=== PATIENT | female | born 1935 | race Caucasian/White ===

== ENCOUNTER 2016-10-30 09:53 | Inpatient (IN) | payer OTHER ==
[~2016-10-30] VITALS: Ht 162.6 cm; Wt 92.1 kg
[~2016-10-30 09:53] MED LIST: ALBU18 IN; ALLO100T PO; DICY20TA66 PO; ESTR1TAB3 PO; HYDR-2652 PO; HYDR12.56 PO; LATA0.0015; LEVO200T45 PO; LOVA40TA72 PO; MET10T PO; MET50T PO; PANT1INJ3 PO; TIMO0.5S32; TRAZ100T2 PO
[2016-10-30] MEDS ORDERED: SODIUM CHLORIDE 0.9% 1,000 ML IVB ONE (10:30)
[2016-10-30] MEDS ORDERED: ONDANSETRON HCL 4 MG/2 ML VIAL IV ONE (10:30)
[2016-10-30 10:36] LABS: Urine RBC None Seen /hpf (0 - 4)
[2016-10-30 10:45] LABS: Urine Bilirubin Negative (Negative); Urine Blood Negative /uL (Negative); Urine Color Yellow (Yellow); Urine Glucose Normal (Normal); Urine Ketone Negative (Negative); Urine Nitrite Negative (Negative); Urine Squamous Epithelial Cell FEW /hpf (<5); Urine Urobilinogen Normal (Negative); Urine pH 6.5 (5.0-8.0)
[2016-10-30] MEDS ORDERED: cloNIDine HCL 0.1 MG TAB PO ONE (10:45)
[2016-10-30 10:58] LABS: Basophils # (auto) 0.1 uL; Basophils % (auto) 0.4 % (0.0-2.0); CONDITION Y; Eosinophils # (auto) 0.2 uL; Eosinophils % (auto) 1.3 % (0.0-7.0); Hematocrit 41.2 % (36.0-46.0); Hemoglobin 13.9 g/dL (12.2-16.2); Lymphocytes # (auto) 1.7 uL; Lymphocytes % (auto) 11.6 % (10.0-50.0); Mean Corpuscular Hemoglobin 30.5 pg (28.0-32.0); Mean Corpuscular Hgb Conc. 33.7 g/dL (32.0-36.0); Mean Corpuscular Volume 90.3 fL (80.0-100.0); Mean Platelet Volume 7.9 fL (7.4-10.4); Monocytes # (auto) 0.7 uL; Monocytes % (auto) 4.6 % (0.0-12.0); Neutrophils # (auto) 11.9 uL; Neutrophils % (auto) 82.1 % (37.0-80.0); Platelet Count (auto) 412 10^3/uL (140-450); Red Cell Distribution Width 13.5 % (11.6-16.0); White Blood Cell 14.5 10^3/uL (4.4-10.8)
[2016-10-30 11:13] LABS: INR 0.92 (0.9-1.15); Partial Thromboplastin Time 28.3 sec (22.64-33.71)
[2016-10-30 11:24] LABS: Albumin 3.1 g/dL (3.4-5.0); Alkaline Phosphatase 97 U/L (45-117); Amylase 31 U/L (25-115); Anion Gap 12 (5-15); Aspartate Aminotransferase 11 U/L (15-37); BUN/Creatinine Ratio 11.9; Bilirubin, Total 0.6 mg/dL (0.2-1.0); Blood Urea Nitrogen 21 mg/dL (7-18); Carbon Dioxide 24 mmol/L (21-32); Chloride 84 mmol/L (98-107); GFR African American 36 mL/min; GFR Non-African American 29 mL/min; Glucose 109 mg/dL (74-106); Magnesium 2.1 mg/dL (1.6-2.6); Potassium 4.1 mmol/L (3.5-5.1); Sodium 120 mmol/L (136-145); Total Protein 7.4 g/dL (6.4-8.2)
[2016-10-30] MEDS ORDERED: LEVOFLOXACIN 500MG 100 ML IV ONE (11:30)
[2016-10-30] MEDS ORDERED: PROMETHAZINE HCL 25 MG/ML 1ML IV ONE (13:00)
[2016-10-30] MEDS ORDERED: TEMAZEPAM 15 MG CAP PO PRN (13:00)
[2016-10-30] MEDS ORDERED: MORPHINE SULF INJ 2 MG/ML SYRINGE 1ML IV PRN (13:00)
[2016-10-30] MEDS ORDERED: PANTOPRAZOLE SODIUM 40 MG/10 ML VIAL IV ONE (13:00)
[2016-10-30] MEDS ORDERED: LORazepam 0.5 MG TAB PO PRN (13:00)
[2016-10-30] MEDS ORDERED: ALBUTEROL SULF 2.5 MG/0.5ML(0.5%) NEB SOLN NEB PRN (13:00)
[2016-10-30] MEDS ORDERED: NITROGLYCERIN 0.4 MG SL TAB SL PRN (13:00)
[2016-10-30] MEDS ORDERED: cefTRIAXone 1GM/50ML D5W 50 ML IV ONE (13:00)
[2016-10-30] MEDS: SODIUM CHLORIDE 0.9% 1,000 ML IV SCH ×2 (13:14→22:47)
[2016-10-30] MEDS ORDERED: hydrALAZINE HCL 25 MG TAB PO ONE (13:15)
[2016-10-30] MEDS: metroNIDAZOLE 500MG/100ML 100 ML IV SCH ×2 (14:52→22:38)
[2016-10-30] MEDS ORDERED: PATIENTS OWN MEDICATION (Trazodone Hcl 1 TAB) PO SCH (18:00)
[2016-10-30 19:33] VITALS: BP 124/45
[2016-10-30] MEDS: PROMETHAZINE HCL 25 MG/ML 1ML IV PRN ×2 (20:15→23:45)
[2016-10-30 20:27] VITALS: BP 140/46
[2016-10-30] MEDS ORDERED: PATIENTS OWN MEDICATION (Hydralazine Hcl 1 TAB) PO SCH ×2 (22:00)
[2016-10-30] MEDS: TIMOLOL MAL 0.5% OPTH(EYE) SOL 5ML EACHEYE SCH (22:00)
[2016-10-30] MEDS: MORPHINE SULF INJ 2 MG/ML SYRINGE 1ML IV PRN (22:05)
[2016-10-30] MEDS: hydrALAZINE HCL 25 MG TAB PO SCH (22:11)
[2016-10-30 22:14] VITALS: BP 140/46
[2016-10-30] MEDS: LATANOPROST 0.005 % OPTH(EYE) SOL 2.5ML EACHEYE SCH (22:15)
[2016-10-30] MEDS: traZODone HCL 50 MG TAB PO SCH (22:15)
[2016-10-30] MEDS: METOPROLOL TARTRATE 50 MG TAB PO SCH (22:16)
[2016-10-31] MEDS: metroNIDAZOLE 500MG/100ML 100 ML IV SCH ×4 (02:22→23:00)
[2016-10-31 05:00] VITALS: BP 102/44
[2016-10-31 05:46] LABS: Basophils # (auto) 0 uL; Basophils % (auto) 0.1 % (0.0-2.0); CONDITION Y; Eosinophils # (auto) 0.1 uL; Eosinophils % (auto) 1.1 % (0.0-7.0); Hematocrit 35.8 % (36.0-46.0); Hemoglobin 12.1 g/dL (12.2-16.2); Lymphocytes # (auto) 0.8 uL; Lymphocytes % (auto) 6.6 % (10.0-50.0); Mean Corpuscular Hemoglobin 30.9 pg (28.0-32.0); Mean Corpuscular Volume 90.9 fL (80.0-100.0); Mean Platelet Volume 7.7 fL (7.4-10.4); Monocytes # (auto) 0.7 uL; Monocytes % (auto) 5.3 % (0.0-12.0); Neutrophils % (auto) 86.9 % (37.0-80.0); Platelet Count (auto) 294 10^3/uL (140-450); Red Cell Distribution Width 13.8 % (11.6-16.0); White Blood Cell 12.6 10^3/uL (4.4-10.8)
[2016-10-31] MEDS: LEVOTHYROXINE SODIUM 100 MCG TAB PO SCH (06:03)
[2016-10-31 06:21] LABS: Albumin 2.4 g/dL (3.4-5.0); BUN/Creatinine Ratio 10.2; Calcium 7.9 mg/dL (8.5-10.1); Potassium 3.9 mmol/L (3.5-5.1)
[2016-10-31 06:23] LABS: Bilirubin, Total 0.6 mg/dL (0.2-1.0); Total Protein 5.9 g/dL (6.4-8.2)
[2016-10-31] MEDS: PROMETHAZINE HCL 25 MG/ML 1ML IV PRN ×3 (07:55→23:28)
[2016-10-31 09:00] VITALS: BP 116/46
[2016-10-31] MEDS: cefTRIAXone 1GM/50ML D5W 50 ML IV SCH (09:36)
[2016-10-31] MEDS: PANTOPRAZOLE SODIUM 40 MG/10 ML VIAL IV SCH (09:37)
[2016-10-31] MEDS: SODIUM CHLORIDE 0.9% 1,000 ML IV SCH ×2 (09:37→19:30)
[2016-10-31] MEDS: ESTRADIOL 1 MG TAB PO SCH (09:37)
[2016-10-31] MEDS: ALLOPURINOL 100 MG TAB PO SCH (09:38)
[2016-10-31] MEDS: hydrALAZINE HCL 25 MG TAB PO SCH ×2 (09:45→22:57)
[2016-10-31] MEDS: METOPROLOL TARTRATE 50 MG TAB PO SCH ×2 (09:45→22:57)
[2016-10-31] MEDS ORDERED: PATIENTS OWN MEDICATION (Levothyroxine Sodium 200 MCG) PO SCH (10:00)
[2016-10-31] MEDS: TIMOLOL MAL 0.5% OPTH(EYE) SOL 5ML EACHEYE SCH ×2 (10:00→22:56)
[2016-10-31] MEDS: MORPHINE SULF INJ 2 MG/ML SYRINGE 1ML IV PRN (12:25)
[2016-10-31] MEDS: ACETAMINOPHEN 500 MG TAB PO PRN ×2 (12:43→21:07)
[2016-10-31 13:00] VITALS: BP 143/60
[2016-10-31 17:00] VITALS: BP 133/51
[2016-10-31 20:00] VITALS: BP 149/55
[2016-10-31 21:28] VITALS: BP 149/55
[2016-10-31] MEDS: LATANOPROST 0.005 % OPTH(EYE) SOL 2.5ML EACHEYE SCH (22:56)
[2016-10-31] MEDS: traZODone HCL 50 MG TAB PO SCH (22:57)
[2016-11-01] VITALS (7 sets, daily range): BP systolic 98–150; BP diastolic 40–61
[2016-11-01] MEDS: ACETAMINOPHEN 500 MG TAB PO PRN ×2 (01:51→09:22)
[2016-11-01] MEDS: metroNIDAZOLE 500MG/100ML 100 ML IV SCH ×4 (02:52→20:00)
[2016-11-01] MEDS: PROMETHAZINE HCL 25 MG/ML 1ML IV PRN (04:45)
[2016-11-01] MEDS: SODIUM CHLORIDE 0.9% 1,000 ML IV SCH ×2 (04:50→15:01)
[2016-11-01 06:43] LABS: Basophils # (auto) 0 uL; Basophils % (auto) 0.2 % (0.0-2.0); CONDITION Y; Eosinophils # (auto) 0.5 uL; Eosinophils % (auto) 4.7 % (0.0-7.0); Hematocrit 34.8 % (36.0-46.0); Hemoglobin 11.6 g/dL (12.2-16.2); Lymphocytes # (auto) 0.4 uL; Lymphocytes % (auto) 4.2 % (10.0-50.0); Mean Corpuscular Hemoglobin 30.3 pg (28.0-32.0); Mean Corpuscular Hgb Conc. 33.4 g/dL (32.0-36.0); Mean Corpuscular Volume 90.7 fL (80.0-100.0); Mean Platelet Volume 7.7 fL (7.4-10.4); Monocytes # (auto) 0.5 uL; Monocytes % (auto) 4.4 % (0.0-12.0); Neutrophils # (auto) 8.8 uL; Neutrophils % (auto) 86.5 % (37.0-80.0); Platelet Count (auto) 355 10^3/uL (140-450); Red Cell Distribution Width 13.8 % (11.6-16.0); White Blood Cell 10.2 10^3/uL (4.4-10.8)
[2016-11-01] MEDS: LEVOTHYROXINE SODIUM 100 MCG TAB PO SCH (06:54)
[2016-11-01 07:00] LABS: Albumin 2.5 g/dL (3.4-5.0); BUN/Creatinine Ratio 8.9; Calcium 7.9 mg/dL (8.5-10.1)
[2016-11-01 07:06] LABS: Bilirubin, Total 0.4 mg/dL (0.2-1.0); Total Protein 6.1 g/dL (6.4-8.2)
[2016-11-01 07:17] LABS: Potassium 4.2 mmol/L (3.5-5.1)
[2016-11-01] MEDS: PANTOPRAZOLE SODIUM 40 MG/10 ML VIAL IV SCH (09:21)
[2016-11-01] MEDS: cefTRIAXone 1GM/50ML D5W 50 ML IV SCH (09:21)
[2016-11-01] MEDS: ESTRADIOL 1 MG TAB PO SCH (09:21)
[2016-11-01] MEDS: ALLOPURINOL 100 MG TAB PO SCH (09:22)
[2016-11-01] MEDS: METOPROLOL TARTRATE 50 MG TAB PO SCH ×2 (09:23→21:13)
[2016-11-01] MEDS: hydrALAZINE HCL 25 MG TAB PO SCH ×2 (09:24→21:12)
[2016-11-01] MEDS: TIMOLOL MAL 0.5% OPTH(EYE) SOL 5ML EACHEYE SCH ×2 (09:26→21:43)
[2016-11-01] MEDS ORDERED: LORazepam 2MG/ML-1ML VIAL IV PRN (18:00)
[2016-11-01] MEDS: LATANOPROST 0.005 % OPTH(EYE) SOL 2.5ML EACHEYE SCH (21:43)
[2016-11-01] MEDS: traZODone HCL 50 MG TAB PO SCH (21:44)
[2016-11-02] VITALS (7 sets, daily range): BP systolic 92–133; BP diastolic 35–55
[2016-11-02] MEDS: SODIUM CHLORIDE 0.9% 1,000 ML IV SCH ×3 (00:59→20:31)
[2016-11-02] MEDS: metroNIDAZOLE 500MG/100ML 100 ML IV SCH ×4 (01:22→20:30)
[2016-11-02] MEDS: LEVOTHYROXINE SODIUM 100 MCG TAB PO SCH (06:15)
[2016-11-02] MEDS: cefTRIAXone 1GM/50ML D5W 50 ML IV SCH (08:45)
[2016-11-02] MEDS: ESTRADIOL 1 MG TAB PO SCH (09:40)
[2016-11-02] MEDS: HYDROcodone-ACET 5/325MG TAB PO PRN (09:40)
[2016-11-02] MEDS: TIMOLOL MAL 0.5% OPTH(EYE) SOL 5ML EACHEYE SCH ×2 (09:40→22:04)
[2016-11-02] MEDS: PANTOPRAZOLE SODIUM 40 MG/10 ML VIAL IV SCH (09:40)
[2016-11-02] MEDS: ALLOPURINOL 100 MG TAB PO SCH (09:40)
[2016-11-02] MEDS: METOPROLOL TARTRATE 50 MG TAB PO SCH ×2 (09:41→22:05)
[2016-11-02] MEDS: hydrALAZINE HCL 25 MG TAB PO SCH ×2 (09:41→22:05)
[2016-11-02] MEDS: ACETAMINOPHEN 500 MG TAB PO PRN (20:40)
[2016-11-02] MEDS: LATANOPROST 0.005 % OPTH(EYE) SOL 2.5ML EACHEYE SCH (22:04)
[2016-11-02] MEDS: traZODone HCL 50 MG TAB PO SCH (22:05)
[2016-11-03] MEDS: metroNIDAZOLE 500MG/100ML 100 ML IV SCH ×2 (02:16→08:38)
[2016-11-03 05:14] VITALS: BP 105/43
[2016-11-03] MEDS: LEVOTHYROXINE SODIUM 100 MCG TAB PO SCH (06:27)
[2016-11-03] MEDS: SODIUM CHLORIDE 0.9% 1,000 ML IV SCH ×2 (06:50→18:07)
[2016-11-03 06:59] LABS: Hematocrit 33.1 % (36.0-46.0); Mean Corpuscular Hemoglobin 30.2 pg (28.0-32.0); Mean Corpuscular Hgb Conc. 33.4 g/dL (32.0-36.0); Mean Corpuscular Volume 90.7 fL (80.0-100.0); Mean Platelet Volume 7.9 fL (7.4-10.4); Platelet Count (auto) 273 10^3/uL (140-450); Red Cell Distribution Width 13.2 % (11.6-16.0); SUSPECT SEE PRINTOUT; White Blood Cell 10.5 10^3/uL (4.4-10.8)
[2016-11-03 07:19] LABS: BUN/Creatinine Ratio 8.8; Calcium 7.9 mg/dL (8.5-10.1); Potassium 3.7 mmol/L (3.5-5.1)
[2016-11-03 07:40] LABS: Metamyelocytes % 0; Myelocytes % 0; Promyelocytes % 0; Reactive Lymphocytes 0
[2016-11-03 08:09] LABS: Platelet Estimate Adequate; RBC Morphology Normal
[2016-11-03 08:23] VITALS: BP 141/61
[2016-11-03] MEDS: TIMOLOL MAL 0.5% OPTH(EYE) SOL 5ML EACHEYE SCH ×2 (09:09→23:31)
[2016-11-03] MEDS: PANTOPRAZOLE SODIUM 40 MG/10 ML VIAL IV SCH (09:09)
[2016-11-03] MEDS: ESTRADIOL 1 MG TAB PO SCH (09:10)
[2016-11-03] MEDS: HYDROcodone-ACET 5/325MG TAB PO PRN ×2 (09:10→18:55)
[2016-11-03] MEDS: cefTRIAXone 1GM/50ML D5W 50 ML IV SCH (09:10)
[2016-11-03] MEDS: ALLOPURINOL 100 MG TAB PO SCH (09:11)
[2016-11-03] MEDS: hydrALAZINE HCL 25 MG TAB PO SCH ×2 (09:13→23:32)
[2016-11-03] MEDS: METOPROLOL TARTRATE 50 MG TAB PO SCH ×2 (09:13→23:33)
[2016-11-03 12:12] VITALS: BP 105/57
[2016-11-03 17:10] VITALS: BP 131/52
[2016-11-03 20:00] VITALS: BP 136/55
[2016-11-03 22:00] VITALS: BP 136/55
[2016-11-03] MEDS: LATANOPROST 0.005 % OPTH(EYE) SOL 2.5ML EACHEYE SCH (23:31)
[2016-11-03] MEDS: ACETAMINOPHEN 500 MG TAB PO PRN (23:32)
[2016-11-03] MEDS: traZODone HCL 50 MG TAB PO SCH (23:32)
[2016-11-04] MEDS ORDERED: HYOSCYAMINE SULF 0.125 MG TAB SL PRN (01:00)
[2016-11-04] MEDS ORDERED: DOCUSATE SOD 100 MG CAP PO PRN (01:00)
[2016-11-04] MEDS ORDERED: LORazepam 2MG/ML-1ML VIAL IV PRN (01:00)
[2016-11-04] MEDS ORDERED: MORPHINE SULF INJ 2 MG/ML SYRINGE 1ML IV PRN (01:00)
[2016-11-04] MEDS: SODIUM CHLORIDE 0.9% 1,000 ML IV SCH ×2 (02:59→12:47)
[2016-11-04 05:30] VITALS: BP 120/47
[2016-11-04 06:32] LABS: Basophils # (auto) 0 uL; Basophils % (auto) 0.2 % (0.0-2.0); CONDITION Y; DEFINITIVE SEE PRINTOUT; Eosinophils # (auto) 0.8 uL; Eosinophils % (auto) 8.1 % (0.0-7.0); Hematocrit 32.2 % (36.0-46.0); Hemoglobin 10.7 g/dL (12.2-16.2); Lymphocytes # (auto) 0.8 uL; Lymphocytes % (auto) 8.4 % (10.0-50.0); Mean Corpuscular Hemoglobin 30.4 pg (28.0-32.0); Mean Corpuscular Hgb Conc. 33.3 g/dL (32.0-36.0); Mean Corpuscular Volume 91.3 fL (80.0-100.0); Mean Platelet Volume 7.7 fL (7.4-10.4); Monocytes # (auto) 0.6 uL; Monocytes % (auto) 6.9 % (0.0-12.0); Neutrophils # (auto) 7.2 uL; Neutrophils % (auto) 76.4 % (37.0-80.0); Platelet Count (auto) 339 10^3/uL (140-450); Red Cell Distribution Width 14.4 % (11.6-16.0); White Blood Cell 9.4 10^3/uL (4.4-10.8)
[2016-11-04 06:40] LABS: Albumin 2.3 g/dL (3.4-5.0); Calcium 7.6 mg/dL (8.5-10.1); Potassium 3.8 mmol/L (3.5-5.1)
[2016-11-04 06:43] LABS: BUN/Creatinine Ratio 7.6
[2016-11-04 06:58] LABS: Bilirubin, Total 0.5 mg/dL (0.2-1.0); Total Protein 5.5 g/dL (6.4-8.2)
[2016-11-04] MEDS: LEVOTHYROXINE SODIUM 100 MCG TAB PO SCH (07:44)
[2016-11-04 08:00] VITALS: BP 120/47
[2016-11-04 09:00] VITALS: BP 146/61
[2016-11-04] MEDS: PANTOPRAZOLE SODIUM 40 MG/10 ML VIAL IV SCH (09:49)
[2016-11-04] MEDS: cefTRIAXone 1GM/50ML D5W 50 ML IV SCH (09:50)
[2016-11-04] MEDS: ALLOPURINOL 100 MG TAB PO SCH (09:51)
[2016-11-04] MEDS: ESTRADIOL 1 MG TAB PO SCH (09:51)
[2016-11-04] MEDS: TIMOLOL MAL 0.5% OPTH(EYE) SOL 5ML EACHEYE SCH ×2 (09:52→23:16)
[2016-11-04] MEDS: hydrALAZINE HCL 25 MG TAB PO SCH ×2 (09:52→23:18)
[2016-11-04] MEDS: METOPROLOL TARTRATE 50 MG TAB PO SCH ×2 (09:52→23:19)
[2016-11-04 13:00] VITALS: BP 137/60
[2016-11-04] MEDS: PROMETHAZINE HCL 25 MG/ML 1ML IV PRN ×2 (13:48→23:50)
[2016-11-04] MEDS: HYDROcodone-ACET 5/325MG TAB PO PRN ×2 (14:08→23:19)
[2016-11-04] MEDS ORDERED: LACTULOSE 20Gm/30ML SOLN PO PRN (17:00)
[2016-11-04] MEDS: BOOST PLUS 8 ounce PO SCH (17:54)
[2016-11-04 20:00] VITALS: BP 142/64
[2016-11-04 22:00] VITALS: BP 142/64
[2016-11-04] MEDS: LATANOPROST 0.005 % OPTH(EYE) SOL 2.5ML EACHEYE SCH (23:16)
[2016-11-04] MEDS: traZODone HCL 50 MG TAB PO SCH (23:20)
[2016-11-05] VITALS (7 sets, daily range): BP systolic 134–163; BP diastolic 53–70
[2016-11-05] MEDS: SODIUM CHLORIDE 0.9% 1,000 ML IV SCH ×3 (01:38→19:24)
[2016-11-05] MEDS: BOOST PLUS 8 ounce PO SCH ×5 (05:35→21:42)
[2016-11-05 06:11] LABS: Basophils # (auto) 0 uL; Basophils % (auto) 0.5 % (0.0-2.0); CONDITION Y; DEFINITIVE SEE PRINTOUT; Eosinophils # (auto) 0.7 uL; Eosinophils % (auto) 7.5 % (0.0-7.0); Hematocrit 32.6 % (36.0-46.0); Hemoglobin 10.7 g/dL (12.2-16.2); Lymphocytes # (auto) 1.5 uL; Lymphocytes % (auto) 16.2 % (10.0-50.0); Mean Corpuscular Hemoglobin 30.1 pg (28.0-32.0); Mean Corpuscular Hgb Conc. 32.9 g/dL (32.0-36.0); Mean Corpuscular Volume 91.7 fL (80.0-100.0); Mean Platelet Volume 7.8 fL (7.4-10.4); Monocytes # (auto) 0.7 uL; Monocytes % (auto) 7.2 % (0.0-12.0); Neutrophils # (auto) 6.5 uL; Neutrophils % (auto) 68.6 % (37.0-80.0); Platelet Count (auto) 352 10^3/uL (140-450); Red Cell Distribution Width 14.6 % (11.6-16.0); White Blood Cell 9.4 10^3/uL (4.4-10.8)
[2016-11-05] MEDS: LEVOTHYROXINE SODIUM 100 MCG TAB PO SCH (06:20)
[2016-11-05 06:39] LABS: Potassium 3.9 mmol/L (3.5-5.1)
[2016-11-05 06:44] LABS: Albumin 2.3 g/dL (3.4-5.0); BUN/Creatinine Ratio 7.5; Calcium 7.8 mg/dL (8.5-10.1)
[2016-11-05 06:46] LABS: Bilirubin, Total 0.4 mg/dL (0.2-1.0); Total Protein 5.6 g/dL (6.4-8.2)
[2016-11-05] MEDS ORDERED: cefTRIAXone 1GM/50ML D5W 50 ML IV SCH (09:00)
[2016-11-05] MEDS: cefTRIAXone 1GM/50ML D5W 50 ML IV SCH (09:05)
[2016-11-05] MEDS: TIMOLOL MAL 0.5% OPTH(EYE) SOL 5ML EACHEYE SCH ×2 (10:24→21:33)
[2016-11-05] MEDS: ESTRADIOL 1 MG TAB PO SCH (10:25)
[2016-11-05] MEDS: PANTOPRAZOLE SODIUM 40 MG/10 ML VIAL IV SCH (10:25)
[2016-11-05] MEDS: ALLOPURINOL 100 MG TAB PO SCH (10:26)
[2016-11-05] MEDS: METOPROLOL TARTRATE 50 MG TAB PO SCH ×2 (10:26→21:40)
[2016-11-05] MEDS: hydrALAZINE HCL 25 MG TAB PO SCH ×2 (10:26→21:39)
[2016-11-05] MEDS: MULTIPLE VITAMINS W/ MINERALS TAB PO SCH (16:52)
[2016-11-05] MEDS: ACETAMINOPHEN 500 MG TAB PO PRN (21:32)
[2016-11-05] MEDS: LATANOPROST 0.005 % OPTH(EYE) SOL 2.5ML EACHEYE SCH (21:33)
[2016-11-05] MEDS: traZODone HCL 50 MG TAB PO SCH (21:33)
[2016-11-05] MEDS: ASCORBIC ACID 500 MG TAB PO SCH (21:33)
[2016-11-06] VITALS (7 sets, daily range): BP systolic 103–157; BP diastolic 51–76
[2016-11-06] MEDS: SODIUM CHLORIDE 0.9% 1,000 ML IV SCH ×2 (04:47→14:50)
[2016-11-06] MEDS: BOOST PLUS 8 ounce PO SCH ×4 (06:00→22:00)
[2016-11-06] MEDS: LEVOTHYROXINE SODIUM 100 MCG TAB PO SCH (06:14)
[2016-11-06] MEDS: ASCORBIC ACID 500 MG TAB PO SCH ×2 (10:00→22:55)
[2016-11-06] MEDS: ESTRADIOL 1 MG TAB PO SCH (10:00)
[2016-11-06] MEDS: METOPROLOL TARTRATE 50 MG TAB PO SCH ×2 (10:00→22:55)
[2016-11-06] MEDS: hydrALAZINE HCL 25 MG TAB PO SCH ×2 (10:00→22:58)
[2016-11-06] MEDS: MULTIPLE VITAMINS W/ MINERALS TAB PO SCH (10:00)
[2016-11-06] MEDS: ALLOPURINOL 100 MG TAB PO SCH (10:00)
[2016-11-06] MEDS: TIMOLOL MAL 0.5% OPTH(EYE) SOL 5ML EACHEYE SCH ×2 (11:01→22:53)
[2016-11-06] MEDS: PANTOPRAZOLE SODIUM 40 MG/10 ML VIAL IV SCH (11:01)
[2016-11-06] MEDS: ACETAMINOPHEN 500 MG TAB PO PRN (14:51)
[2016-11-06] MEDS: LATANOPROST 0.005 % OPTH(EYE) SOL 2.5ML EACHEYE SCH (22:53)
[2016-11-06] MEDS: traZODone HCL 50 MG TAB PO SCH (22:54)
[2016-11-07] VITALS (7 sets, daily range): BP systolic 112–171; BP diastolic 58–72
[2016-11-07] MEDS: ACETAMINOPHEN 500 MG TAB PO PRN ×2 (04:11→23:17)
[2016-11-07] MEDS: SODIUM CHLORIDE 0.9% 1,000 ML IV SCH ×3 (06:19→20:47)
[2016-11-07] MEDS: BOOST PLUS 8 ounce PO SCH ×4 (06:20→23:19)
[2016-11-07] MEDS: LEVOTHYROXINE SODIUM 100 MCG TAB PO SCH (06:21)
[2016-11-07] MEDS: TIMOLOL MAL 0.5% OPTH(EYE) SOL 5ML EACHEYE SCH ×2 (10:22→23:12)
[2016-11-07] MEDS: PANTOPRAZOLE SODIUM 40 MG/10 ML VIAL IV SCH (10:22)
[2016-11-07] MEDS: ALLOPURINOL 100 MG TAB PO SCH (10:23)
[2016-11-07] MEDS: hydrALAZINE HCL 25 MG TAB PO SCH ×2 (10:23→23:19)
[2016-11-07] MEDS: ESTRADIOL 1 MG TAB PO SCH (10:23)
[2016-11-07] MEDS: ASCORBIC ACID 500 MG TAB PO SCH ×2 (10:23→23:13)
[2016-11-07] MEDS: MULTIPLE VITAMINS W/ MINERALS TAB PO SCH (10:23)
[2016-11-07] MEDS: METOPROLOL TARTRATE 50 MG TAB PO SCH ×2 (10:24→23:15)
[2016-11-07] MEDS ORDERED: BISMUTH SUBSALICYLATE 262 MG CHEW PO PRN (11:15)
[2016-11-07] MEDS: METOCLOPRAMIDE HCL 10 MG TAB PO PRN (18:15)
[2016-11-07] MEDS: traZODone HCL 50 MG TAB PO SCH (23:16)
[2016-11-07] MEDS: LATANOPROST 0.005 % OPTH(EYE) SOL 2.5ML EACHEYE SCH (23:18)
[2016-11-08 05:00] VITALS: BP 147/60
[2016-11-08] MEDS: BOOST PLUS 8 ounce PO SCH ×4 (05:39→21:19)
[2016-11-08] MEDS: SODIUM CHLORIDE 0.9% 1,000 ML IV SCH ×2 (05:51→16:47)
[2016-11-08] MEDS: LEVOTHYROXINE SODIUM 100 MCG TAB PO SCH (06:01)
[2016-11-08] MEDS: ACETAMINOPHEN 500 MG TAB PO PRN ×3 (06:56→20:31)
[2016-11-08 09:00] VITALS: BP 176/68
[2016-11-08] MEDS: hydrALAZINE HCL 25 MG TAB PO SCH ×2 (10:47→21:15)
[2016-11-08] MEDS: ESTRADIOL 1 MG TAB PO SCH (10:47)
[2016-11-08] MEDS: ASCORBIC ACID 500 MG TAB PO SCH ×2 (10:48→21:07)
[2016-11-08] MEDS: MULTIPLE VITAMINS W/ MINERALS TAB PO SCH (10:48)
[2016-11-08] MEDS: PANTOPRAZOLE SODIUM 40 MG/10 ML VIAL IV SCH (10:48)
[2016-11-08] MEDS: ALLOPURINOL 100 MG TAB PO SCH (10:48)
[2016-11-08] MEDS: METOCLOPRAMIDE HCL 10 MG TAB PO PRN (10:48)
[2016-11-08] MEDS: METOPROLOL TARTRATE 50 MG TAB PO SCH ×2 (10:49→22:59)
[2016-11-08] MEDS: TIMOLOL MAL 0.5% OPTH(EYE) SOL 5ML EACHEYE SCH ×2 (10:49→21:04)
[2016-11-08 13:00] VITALS: BP 164/59
[2016-11-08 17:00] VITALS: BP 171/58
[2016-11-08 20:00] VITALS: BP 149/72
[2016-11-08] MEDS: traZODone HCL 50 MG TAB PO SCH (21:07)
[2016-11-08] MEDS: LATANOPROST 0.005 % OPTH(EYE) SOL 2.5ML EACHEYE SCH (21:09)
[2016-11-08 22:00] VITALS: BP 149/72
[2016-11-09 01:23] VITALS: BP 149/72
[2016-11-09] MEDS: MORPHINE SULF INJ 2 MG/ML SYRINGE 1ML IV PRN (04:35)
[2016-11-09] MEDS: SODIUM CHLORIDE 0.9% 1,000 ML IV SCH (04:58)
[2016-11-09 05:00] VITALS: BP 170/60
[2016-11-09] MEDS: BOOST PLUS 8 ounce PO SCH (05:33)
[2016-11-09] MEDS: LEVOTHYROXINE SODIUM 100 MCG TAB PO SCH (05:58)
[2016-11-09] MEDS: ACETAMINOPHEN 500 MG TAB PO PRN (08:12)
[2016-11-09] MEDS: METOCLOPRAMIDE HCL 10 MG TAB PO PRN (08:12)
[2016-11-09 08:53] VITALS: BP 178/78
[2016-11-09] MEDS: MULTIPLE VITAMINS W/ MINERALS TAB PO SCH (10:05)
[2016-11-09] MEDS: ALLOPURINOL 100 MG TAB PO SCH (10:05)
[2016-11-09] MEDS: PANTOPRAZOLE SODIUM 40 MG/10 ML VIAL IV SCH (10:05)
[2016-11-09] MEDS: METOPROLOL TARTRATE 50 MG TAB PO SCH (10:06)
[2016-11-09] MEDS: hydrALAZINE HCL 25 MG TAB PO SCH (10:06)
[2016-11-09] MEDS: ESTRADIOL 1 MG TAB PO SCH (10:06)
[2016-11-09] MEDS: ASCORBIC ACID 500 MG TAB PO SCH (10:06)
[2016-11-09] MEDS: TIMOLOL MAL 0.5% OPTH(EYE) SOL 5ML EACHEYE SCH (10:07)
[2016-11-09 12:42] VITALS: BP 147/55
[2016-11-09 17:26] VITALS: BP 175/68
== END 2016-11-09 19:00 | disposition home health service, planned readmission (86) | DRG 682 ==
LOC: ER 09:56 → TELE 09:57 → TELE-WESTW 20:27 → WEST WING 11-06 18:20
PROVIDERS: ADMIT Internal Medicine; ATTEND Internal Medicine Pulmonary Disease
DX: N17.0 Acute kidney failure with tubular necrosis (principal); E43 Unspecified severe protein-calorie malnutrition; E87.1 Hypo-osmolality and hyponatremia; N39.0 Urinary tract infection, site not specified; R25.1 Tremor, unspecified; N18.4 Chronic kidney disease, stage 4 (severe); D72.829 Elevated white blood cell count, unspecified; E03.9 Hypothyroidism, unspecified; E78.5 Hyperlipidemia, unspecified; E86.0 Dehydration; I12.9 Hypertensive chronic kidney disease with stage 1 through stage 4 chronic kidney disease, or unspecified chronic kidney disease; K21.9 Gastro-esophageal reflux disease without esophagitis; K57.30 Diverticulosis of large intestine without perforation or abscess without bleeding; K80.20 Calculus of gallbladder without cholecystitis without obstruction; N94.89 Other specified conditions associated with female genital organs and menstrual cycle; R00.1 Bradycardia, unspecified; I16.0 Hypertensive urgency; Z82.49 Family history of ischemic heart disease and other diseases of the circulatory system; Z82.62 Family history of osteoporosis; Z91.041 Radiographic dye allergy status; Z88.0 Allergy status to penicillin; Z88.2 Allergy status to sulfonamides; Z88.8 Allergy status to other drugs, medicaments and biological substances; Z91.018 Allergy to other foods; Z90.710 Acquired absence of both cervix and uterus; Z90.89 Acquired absence of other organs; D63.8 Anemia in other chronic diseases classified elsewhere; E78.00 Pure hypercholesterolemia, unspecified; F41.9 Anxiety disorder, unspecified; K59.00 Constipation, unspecified; K76.0 Fatty (change of) liver, not elsewhere classified; Z71.89 Other specified counseling; L89.91 Pressure ulcer of unspecified site, stage 1
CPT/HCPCS: 36415; 70551; 71020; 74176; 76705; 76856; 78226; 80048; 80053; 81001; 82150; 82962; 83605; 83690; 83735; 84443; 84484; 84550; 85007; 85025; 85027; 85610; 85652; 85730; 87040; 87086; 93005; 96361; 96365; 96367; 96375; 97110; 97116; 97530; 99291; C9113; J0696; J1956; J2405; J3490

== ENCOUNTER → 2016-12-29 | Outpatient (CLI) | payer OTHER ==
[~2016-12-29] MED LIST changes: -ALBU18 IN; -HYDR12.56 PO; -TRAZ100T2 PO
[2016-12-29 09:53] LABS: Albumin 3.3 g/dL (3.4-5.0); BUN/Creatinine Ratio 18.7; Bilirubin, Total 0.3 mg/dL (0.2-1.0); Calcium 8.7 mg/dL (8.5-10.1); Total Protein 7.6 g/dL (6.4-8.2)
== END | disposition home or self-care (01) ==
LOC: LAB 09:10
PROVIDERS: ATTEND Internal Medicine
DX: N18.3 Chronic kidney disease, stage 3 (moderate) (principal)
CPT/HCPCS: 36415; 80053

== ENCOUNTER → 2017-02-11 | Outpatient (CLI) | payer OTHER ==
[~2017-02-11] MED LIST changes: -HYDR-2652 PO; +HYDR50TA15 PO
== END | disposition home or self-care (01) ==
LOC: LAB 14:24
PROVIDERS: ATTEND Obstetrics & Gynecology
DX: R19.09 Other intra-abdominal and pelvic swelling, mass and lump (principal)
CPT/HCPCS: 86304

== ENCOUNTER 2017-02-26 11:49 | Emergency (ER) | payer OTHER ==
[~2017-02-26] VITALS: Ht 162.6 cm; Wt 79.8 kg
[2017-02-26] MEDS ORDERED: SODIUM CHLORIDE 0.9% 1,000 ML IV ONE (12:15)
[2017-02-26] MEDS ORDERED: KETOROLAC TROMETH 30 MG/ML 1ML VIAL IV ONE (12:15)
[2017-02-26 13:14] LABS: Basophils # (auto) 0 uL; Basophils % (auto) 0.4 % (0.0-2.0); Eosinophils # (auto) 0.4 uL; Eosinophils % (auto) 3.6 % (0.0-7.0); Hematocrit 38.8 % (36.0-46.0); Hemoglobin 12.9 g/dL (12.2-16.2); Lymphocytes % (auto) 19.1 % (10.0-50.0); Mean Corpuscular Hemoglobin 29.5 pg (28.0-32.0); Mean Corpuscular Hgb Conc. 33.2 g/dL (32.0-36.0); Mean Corpuscular Volume 88.9 fL (80.0-100.0); Mean Platelet Volume 7.6 fL (6.9-10.8); Monocytes # (auto) 0.7 uL; Monocytes % (auto) 6.7 % (0.0-12.0); Neutrophils # (auto) 7.2 uL; Neutrophils % (auto) 70.2 % (37.0-80.0); Platelet Count (auto) 332 10^3/uL (140-450); Red Cell Distribution Width 13.6 % (11.8-14.3); White Blood Cell 10.2 10^3/uL (4.4-10.8)
[2017-02-26 14:02] LABS: Albumin 3.2 g/dL (3.4-5.0); BUN/Creatinine Ratio 18.9; Bilirubin, Total 0.5 mg/dL (0.2-1.0); Calcium 9.3 mg/dL (8.5-10.1); Potassium 4.1 mmol/L (3.5-5.1); Total Protein 7.3 g/dL (6.4-8.2)
[2017-02-26 14:44] VITALS: BP 159/66
== END 2017-02-26 15:08 | disposition home or self-care (01) ==
LOC: ER 11:49
DX: N39.0 Urinary tract infection, site not specified (principal); I10 Essential (primary) hypertension; I12.9 Hypertensive chronic kidney disease with stage 1 through stage 4 chronic kidney disease, or unspecified chronic kidney disease; N18.9 Chronic kidney disease, unspecified; K21.9 Gastro-esophageal reflux disease without esophagitis; E78.5 Hyperlipidemia, unspecified; E07.89 Other specified disorders of thyroid; Z90.710 Acquired absence of both cervix and uterus; Z90.89 Acquired absence of other organs; Z79.899 Other long term (current) drug therapy; Z88.0 Allergy status to penicillin; Z88.2 Allergy status to sulfonamides; Z91.041 Radiographic dye allergy status
CPT/HCPCS: 36415; 71020; 74176; 80053; 81002; 85025; 93005; 96361; 96374; 99285; J1885

== ENCOUNTER 2017-08-09 12:36 | Emergency (ER) | payer OTHER ==
[~2017-08-09] VITALS: Ht 162.6 cm; Wt 84.4 kg
[2017-08-09 12:39] VITALS: BP 208/78
[2017-08-09] MEDS ORDERED: ONDANSETRON HCL 4 MG/2 ML VIAL IV ONE (13:30)
[2017-08-09] MEDS ORDERED: MORPHINE SULFATE 8mg/ml INJ SDV IV ONE (13:30)
[2017-08-09 14:25] LABS: Basophils # (auto) 0 uL; Basophils % (auto) 0.3 % (0.0-2.0); Eosinophils # (auto) 0.2 uL; Hematocrit 40.1 % (36.0-46.0); Hemoglobin 13.4 g/dL (12.2-16.2); Lymphocytes # (auto) 0.9 uL; Lymphocytes % (auto) 8.5 % (10.0-50.0); Mean Corpuscular Hemoglobin 29.2 pg (28.0-32.0); Mean Corpuscular Hgb Conc. 33.4 g/dL (32.0-36.0); Mean Corpuscular Volume 87.5 fL (80.0-100.0); Monocytes # (auto) 0.7 uL; Monocytes % (auto) 6.2 % (0.0-12.0); Nucleated Red Blood Cells % 0.1 %; Platelet Count (auto) 354 10^3/uL (140-450); Red Blood Cells 4.58 10^6/uL (4.0-5.20); Red Cell Distribution Width 12.7 % (11.8-14.3); White Blood Cell 10.9 10^3/uL (4.4-10.8)
[2017-08-09 14:42] LABS: Alanine Aminotransferase 17 U/L (13-56); Albumin 3.2 g/dL (3.4-5.0); Anion Gap 9 (5-15); Aspartate Aminotransferase 18 U/L (15-37); BUN/Creatinine Ratio 13.6; Blood Urea Nitrogen 27 mg/dL (7-18); Calcium 9.1 mg/dL (8.5-10.1); Carbon Dioxide 25 mmol/L (21-32); Chloride 99 mmol/L (98-107); GFR African American 31 mL/min; GFR Non-African American 25 mL/min; Glucose 109 mg/dL (74-106); Potassium 4.3 mmol/L (3.5-5.1); Sodium 133 mmol/L (136-145)
[2017-08-09 14:46] LABS: Alkaline Phosphatase 72 U/L (45-117); Bilirubin, Total 0.8 mg/dL (0.2-1.0); Total Protein 7.1 g/dL (6.4-8.2)
== END 2017-08-09 17:07 | disposition home or self-care (01) ==
LOC: EDBD 12:36 → ER 12:36
DX: I13.0 Hypertensive heart and chronic kidney disease with heart failure and stage 1 through stage 4 chronic kidney disease, or unspecified chronic kidney disease (principal); N18.9 Chronic kidney disease, unspecified; I50.9 Heart failure, unspecified; K21.9 Gastro-esophageal reflux disease without esophagitis; E07.89 Other specified disorders of thyroid; Z90.89 Acquired absence of other organs; Z90.710 Acquired absence of both cervix and uterus; Z88.0 Allergy status to penicillin; Z88.2 Allergy status to sulfonamides; Z91.012 Allergy to eggs
CPT/HCPCS: 36415; 71045; 73502; 74176; 80053; 83880; 84484; 85025; 96374; 96375; 99285; J2270; J2405

== ENCOUNTER → 2017-09-16 | Outpatient (CLI) | payer OTHER | END | disposition home or self-care (01) | LOC: LAB 14:29 | PROVIDERS: ATTEND Internal Medicine | DX: N31.2 Flaccid neuropathic bladder, not elsewhere classified (principal); K21.9 Gastro-esophageal reflux disease without esophagitis; I12.9 Hypertensive chronic kidney disease with stage 1 through stage 4 chronic kidney disease, or unspecified chronic kidney disease; N18.9 Chronic kidney disease, unspecified | CPT/HCPCS: 87086; 87088; 87186 ==

== ENCOUNTER → 2017-11-11 | Outpatient (CLI) | payer OTHER | END | disposition home or self-care (01) | LOC: LAB 15:59 | PROVIDERS: ATTEND Family Medicine | DX: I12.9 Hypertensive chronic kidney disease with stage 1 through stage 4 chronic kidney disease, or unspecified chronic kidney disease (principal); N18.9 Chronic kidney disease, unspecified | CPT/HCPCS: 87077; 87186; 87205 ==

== ENCOUNTER → 2017-11-25 | Outpatient (CLI) | payer OTHER | END | disposition home or self-care (01) | LOC: LAB 14:22 | PROVIDERS: ATTEND Urology | DX: N31.2 Flaccid neuropathic bladder, not elsewhere classified (principal) | CPT/HCPCS: 87086; 87088; 87186 ==

== ENCOUNTER → 2017-11-30 | Outpatient (CLI) | payer OTHER ==
[2017-11-30 12:40] LABS: Urine Amorphous Crystal FEW /hpf (None Seen); Urine Bacteria NONE SEEN /hpf (None Seen); Urine Blood Negative /uL (Negative); Urine Specific Gravity 1.009 (1.001-1.035); Urine WBC 40 /hpf (0 - 5)
[2017-11-30 12:48] LABS: Bilirubin, Total 0.5 mg/dL (0.2-1.0); Calcium 8.9 mg/dL (8.5-10.1); Potassium 4.7 mmol/L (3.5-5.1); Total Protein 6.4 g/dL (6.4-8.2)
[2017-11-30 13:32] LABS: Basophils # (auto) 0.1 uL; Basophils % (auto) 0.5 % (0.0-2.0); Eosinophils # (auto) 0.3 uL; Eosinophils % (auto) 2.5 % (0.0-7.0); Hematocrit 35.9 % (36.0-46.0); Hemoglobin 12.4 g/dL (12.2-16.2); Lymphocytes # (auto) 1.7 uL; Lymphocytes % (auto) 15.2 % (10.0-50.0); Mean Corpuscular Hemoglobin 30.4 pg (28.0-32.0); Mean Corpuscular Hgb Conc. 34.5 g/dL (32.0-36.0); Monocytes # (auto) 0.6 uL; Monocytes % (auto) 5.6 % (0.0-12.0); Neutrophils # (auto) 8.3 uL; Neutrophils % (auto) 76.2 % (37.0-80.0); Platelet Count (auto) 360 10^3/uL (140-450); Red Blood Cells 4.08 10^6/uL (4.0-5.20); Red Cell Distribution Width 13.5 % (11.8-14.3)
== END | disposition home or self-care (01) ==
LOC: LAB 12:09
PROVIDERS: ATTEND Nurse Practitioner
DX: N39.0 Urinary tract infection, site not specified (principal); E78.5 Hyperlipidemia, unspecified; N18.4 Chronic kidney disease, stage 4 (severe); Z88.0 Allergy status to penicillin; Z88.2 Allergy status to sulfonamides; Z88.7 Allergy status to serum and vaccine
CPT/HCPCS: 36415; 80053; 80061; 81001; 83036; 84443; 85025

== ENCOUNTER → 2017-12-23 | Outpatient (CLI) | payer OTHER ==
[~2017-12-23] MED LIST changes: -LEVO200T45 PO; +LEVO200T7 PO
== END | disposition home or self-care (01) ==
LOC: LAB 13:56
PROVIDERS: ATTEND Urology
DX: N39.0 Urinary tract infection, site not specified (principal); I12.9 Hypertensive chronic kidney disease with stage 1 through stage 4 chronic kidney disease, or unspecified chronic kidney disease; N18.9 Chronic kidney disease, unspecified; K21.9 Gastro-esophageal reflux disease without esophagitis
CPT/HCPCS: 87086; 87088; 87186

== ENCOUNTER 2018-01-12 00:38 | Inpatient (IN) | payer OTHER ==
[~2018-01-12] VITALS: Ht 162.6 cm; Wt 73.9 kg
[2018-01-12 01:14] LABS: Basophils # (auto) 0.1 uL; Eosinophils # (auto) 0.4 uL; Eosinophils % (auto) 3.3 % (0.0-7.0); Hematocrit 40.3 % (36.0-46.0); Hemoglobin 13.6 g/dL (12.2-16.2); Lymphocytes # (auto) 2.6 uL; Lymphocytes % (auto) 22.3 % (10.0-50.0); Mean Corpuscular Hemoglobin 30.4 pg (28.0-32.0); Mean Corpuscular Hgb Conc. 33.8 g/dL (32.0-36.0); Mean Corpuscular Volume 89.8 fL (80.0-100.0); Monocytes # (auto) 0.7 uL; Monocytes % (auto) 6.4 % (0.0-12.0); Neutrophils # (auto) 7.7 uL; Platelet Count (auto) 347 10^3/uL (140-450); Red Blood Cells 4.49 10^6/uL (4.0-5.20); White Blood Cell 11.5 10^3/uL (4.4-10.8)
[2018-01-12 01:33] LABS: Albumin 3.2 g/dL (3.4-5.0); BUN/Creatinine Ratio 18.9; Calcium 8.7 mg/dL (8.5-10.1); Potassium 4.2 mmol/L (3.5-5.1)
[2018-01-12 01:38] LABS: Bilirubin, Total 0.6 mg/dL (0.2-1.0); Total Protein 7.3 g/dL (6.4-8.2)
[2018-01-12 02:33] LABS: Urine Bacteria FEW /hpf (None Seen); Urine Blood Negative /uL (Negative); Urine Budding Yeast OCCASIONAL /hpf (None Seen); Urine WBC 61 /hpf (0 - 5)
[2018-01-12 07:19] LABS: Basophils # (auto) 0.1 uL; Basophils % (auto) 0.7 % (0.0-2.0); Eosinophils # (auto) 0.2 uL; Eosinophils % (auto) 1.6 % (0.0-7.0); Hematocrit 35.6 % (36.0-46.0); Lymphocytes # (auto) 1.5 uL; Lymphocytes % (auto) 13.1 % (10.0-50.0); Mean Corpuscular Hemoglobin 30.1 pg (28.0-32.0); Mean Corpuscular Hgb Conc. 33.8 g/dL (32.0-36.0); Mean Corpuscular Volume 89.2 fL (80.0-100.0); Monocytes # (auto) 0.7 uL; Monocytes % (auto) 6.1 % (0.0-12.0); Neutrophils # (auto) 8.8 uL; Neutrophils % (auto) 78.5 % (37.0-80.0); Platelet Count (auto) 310 10^3/uL (140-450); Red Blood Cells 3.99 10^6/uL (4.0-5.20); Red Cell Distribution Width 13.9 % (11.8-14.3); White Blood Cell 11.1 10^3/uL (4.4-10.8)
[2018-01-12 07:35] LABS: Potassium 4.1 mmol/L (3.5-5.1)
[2018-01-12] MEDS ORDERED: ONDANSETRON HCL 4 MG/2 ML VIAL IV PRN (08:00)
[2018-01-12] MEDS: SODIUM CHLORIDE 0.9% 1,000 ML IV SCH (08:49)
[2018-01-12] MEDS: cefTRIAXone 1GM/10ml IVPUSH 10 ML IV SCH (09:28)
[2018-01-12] MEDS: hydrALAZINE HCL 25 MG TAB PO SCH ×2 (09:28→22:29)
[2018-01-12] MEDS: PANTOPRAZOLE 40 MG TAB PO SCH (09:33)
[2018-01-12] MEDS ORDERED: METOPROLOL TARTRATE 50 MG TAB PO SCH (10:00)
[2018-01-12] MEDS ORDERED: LORazepam 2MG/ML-1ML VIAL IV PRN (17:15)
[2018-01-12 22:00] VITALS: BP 130/48
[2018-01-12] MEDS: ATORVASTATIN 20 MG TAB PO SCH (22:30)
[2018-01-13] MEDS: SODIUM CHLORIDE 0.9% 1,000 ML IV SCH ×2 (00:40→12:51)
[2018-01-13 05:00] VITALS: BP 135/64
[2018-01-13 05:06] LABS: Basophils # (auto) 0 uL; Basophils % (auto) 0.5 % (0.0-2.0); Eosinophils # (auto) 0.3 uL; Eosinophils % (auto) 3.2 % (0.0-7.0); Hemoglobin 12.2 g/dL (12.2-16.2); Lymphocytes # (auto) 2.4 uL; Lymphocytes % (auto) 28.6 % (10.0-50.0); Mean Corpuscular Hemoglobin 30.7 pg (28.0-32.0); Mean Corpuscular Hgb Conc. 34.8 g/dL (32.0-36.0); Mean Corpuscular Volume 88.2 fL (80.0-100.0); Monocytes # (auto) 0.7 uL; Monocytes % (auto) 7.9 % (0.0-12.0); Neutrophils % (auto) 59.8 % (37.0-80.0); Platelet Count (auto) 298 10^3/uL (140-450); Red Blood Cells 3.96 10^6/uL (4.0-5.20); Red Cell Distribution Width 13.2 % (11.8-14.3); White Blood Cell 8.4 10^3/uL (4.4-10.8)
[2018-01-13 05:31] LABS: BUN/Creatinine Ratio 20.4; Calcium 8.5 mg/dL (8.5-10.1); Magnesium 1.9 mg/dL (1.6-2.6); Potassium 3.8 mmol/L (3.5-5.1)
[2018-01-13] MEDS ORDERED: LEVOTHYROXINE SODIUM 100 MCG TAB PO SCH (07:00)
[2018-01-13 08:46] VITALS: BP 172/66
[2018-01-13] MEDS: cefTRIAXone 1GM/10ml IVPUSH 10 ML IV SCH (09:15)
[2018-01-13] MEDS: PANTOPRAZOLE 40 MG TAB PO SCH (11:27)
[2018-01-13] MEDS: ASPirin 81 mg TAB PO SCH (11:28)
[2018-01-13] MEDS: ENOXAPARIN SOD 30 MG/0.3 ML SYRINGE SC SCH (11:28)
[2018-01-13] MEDS: hydrALAZINE HCL 25 MG TAB PO SCH ×2 (11:29→21:38)
[2018-01-13 12:02] VITALS: BP 153/57
[2018-01-13] MEDS ORDERED: MAGNESIUM SULFATE 1GM/100ML 100 ML IV ONE (12:15)
[2018-01-13] MEDS: ACETAMINOPHEN 500 MG TAB PO PRN ×2 (14:54→21:37)
[2018-01-13 16:43] VITALS: BP 139/55
[2018-01-13] MEDS: ATORVASTATIN 20 MG TAB PO SCH (21:37)
[2018-01-13 22:00] VITALS: BP 142/65
[2018-01-14 04:53] VITALS: BP 154/68
[2018-01-14 06:35] LABS: Potassium 3.8 mmol/L (3.5-5.1)
[2018-01-14 07:04] LABS: BUN/Creatinine Ratio 19.4; Calcium 8.6 mg/dL (8.5-10.1); Magnesium 2.2 mg/dL (1.6-2.6)
[2018-01-14] MEDS: SODIUM CHLORIDE 0.9% 1,000 ML IV SCH (08:23)
[2018-01-14] MEDS: cefTRIAXone 1GM/10ml IVPUSH 10 ML IV SCH (08:30)
[2018-01-14 09:00] VITALS: BP 169/70
[2018-01-14] MEDS: ENOXAPARIN SOD 30 MG/0.3 ML SYRINGE SC SCH (09:41)
[2018-01-14] MEDS: PANTOPRAZOLE 40 MG TAB PO SCH (09:41)
[2018-01-14] MEDS: ASPirin 81 mg TAB PO SCH (09:41)
[2018-01-14] MEDS: hydrALAZINE HCL 25 MG TAB PO SCH (09:42)
[2018-01-14] MEDS ORDERED: amLODIPine BESYLATE 5 MG TAB PO SCH (10:00)
[2018-01-14] MEDS ORDERED: AML5T PO (11:23)
[2018-01-14 13:00] VITALS: BP 140/57
[2018-01-14 13:03] VITALS: BP 169/70
== END 2018-01-14 17:20 | DRG 871 ==
LOC: EDBD 00:38 → ER 00:57 → TELE 00:58 → TELE-CENTR 21:30
PROVIDERS: ADMIT Nurse Practitioner Family; ATTEND Internal Medicine
DX: A41.9 Sepsis, unspecified organism (principal); N17.0 Acute kidney failure with tubular necrosis; E87.1 Hypo-osmolality and hyponatremia; N39.0 Urinary tract infection, site not specified; E44.0 Moderate protein-calorie malnutrition; W01.0XXA Fall on same level from slipping, tripping and stumbling without subsequent striking against object, initial encounter; S09.90XA Unspecified injury of head, initial encounter; I12.9 Hypertensive chronic kidney disease with stage 1 through stage 4 chronic kidney disease, or unspecified chronic kidney disease; E86.0 Dehydration; S43.402A Unspecified sprain of left shoulder joint, initial encounter; S63.502A Unspecified sprain of left wrist, initial encounter; R00.1 Bradycardia, unspecified; E03.9 Hypothyroidism, unspecified; M10.9 Gout, unspecified; F32.9 Major depressive disorder, single episode, unspecified; E66.9 Obesity, unspecified; E78.5 Hyperlipidemia, unspecified; R33.9 Retention of urine, unspecified; Z66 Do not resuscitate; T44.7X5A Adverse effect of beta-adrenoreceptor antagonists, initial encounter; N18.9 Chronic kidney disease, unspecified; K21.9 Gastro-esophageal reflux disease without esophagitis; Y93.89 Activity, other specified; Y92.89 Other specified places as the place of occurrence of the external cause; Y99.8 Other external cause status; Z91.041 Radiographic dye allergy status; Z88.2 Allergy status to sulfonamides; Z91.012 Allergy to eggs; Z88.0 Allergy status to penicillin; Z91.013 Allergy to seafood; Z88.7 Allergy status to serum and vaccine; Z91.018 Allergy to other foods; Z79.899 Other long term (current) drug therapy; Z87.440 Personal history of urinary (tract) infections; Z90.710 Acquired absence of both cervix and uterus; Z90.89 Acquired absence of other organs; Z82.49 Family history of ischemic heart disease and other diseases of the circulatory system; Z82.62 Family history of osteoporosis; Z68.28 Body mass index [BMI] 28.0-28.9, adult; Z79.82 Long term (current) use of aspirin
CPT/HCPCS: 36415; 70450; 73030; 73110; 80048; 80053; 80061; 81001; 83735; 83880; 84443; 84484; 85025; 87086; 93306; 93886; 95819; 96361; 96374; J0696